=== PATIENT | male | born 1955 | race Caucasian/White ===

== ENCOUNTER 2019-02-04 10:38 | Inpatient (IN) | payer SELFPAY ==
[~2019-02-04] VITALS: Ht 167.6 cm; Wt 62.3 kg
[2019-02-04] MEDS ORDERED: SODIUM CHLORIDE 0.9% 1,000 ML IVB ONE (11:22)
[2019-02-04] MEDS ORDERED: ASPirin 81 mg TAB PO ONE (11:30)
[2019-02-04 11:38] LABS: Eosinophils # (auto) 0.4 uL; Mean Corpuscular Hemoglobin 25.1 pg (28.0-32.0); Nucleated Red Blood Cells % 0.1 %; White Blood Cell 8.2 10^3/uL (4.4-10.8)
[2019-02-04 11:41] LABS: Basophils # (auto) 0.1 uL; Basophils % (auto) 0.9 % (0.0-2.0); Eosinophils % (auto) 4.5 % (0.0-7.0); Hematocrit 44.1 % (41.0-53.0); Hemoglobin 14.3 g/dL (13.5-17.5); Lymphocytes # (auto) 1.8 uL; Lymphocytes % (auto) 21.7 % (10.0-50.0); Mean Corpuscular Hgb Conc. 32.4 g/dL (32.0-36.0); Mean Corpuscular Volume 77.5 fL (80.0-100.0); Monocytes # (auto) 0.4 uL; Neutrophils # (auto) 5.6 uL; Neutrophils % (auto) 67.9 % (37.0-80.0); Platelet Count (auto) 317 10^3/uL (140-450); Red Blood Cells 5.69 10^6/uL (4.5-5.90); Red Cell Distribution Width 16.1 % (11.8-14.3)
[2019-02-04 11:54] LABS: Albumin 3.4 g/dL (3.4-5.0); Anion Gap 8 (5-15); Blood Urea Nitrogen 17 mg/dL (7-18); Calcium 9.2 mg/dL (8.5-10.1); Carbon Dioxide 28 mmol/L (21-32); Chloride 101 mmol/L (98-107); Glucose 266 mg/dL (74-106); Potassium 3.5 mmol/L (3.5-5.1); Sodium 137 mmol/L (136-145)
[2019-02-04 11:59] LABS: Alanine Aminotransferase 26 U/L (16-61); Alkaline Phosphatase 141 U/L (45-117); Aspartate Aminotransferase 12 U/L (15-37); BUN/Creatinine Ratio 12.1; Bilirubin, Total 0.6 mg/dL (0.2-1.0); GFR African American 66 mL/min; GFR Non-African American 54 mL/min; Total Protein 7.9 g/dL (6.4-8.2)
[2019-02-04] MEDS ORDERED: AZITHROMYCIN 500MG/ 250ML 250 ML IV ONE (13:45)
[2019-02-04] MEDS ORDERED: cefTRIAXone 1GM/50ML D5W 50 ML IV ONE (13:45)
[2019-02-04] MEDS ORDERED: InsuLIN REG 1unit/0.01ml Soln (100units/ml) SC ONE (13:45)
[2019-02-04] MEDS ORDERED: traMADol HCL 50 MG TAB PO PRN (15:00)
[2019-02-04] MEDS ORDERED: MORPHINE SULF INJ 2 MG/ML SYRINGE 1ML IV PRN (15:00)
[2019-02-04] MEDS ORDERED: PROMETHAZINE HCL 25 MG/ML 1ML IV PRN (15:00)
[2019-02-04] MEDS ORDERED: NITROGLYCERIN 0.4 MG SL TAB SL PRN (15:00)
[2019-02-04] MEDS ORDERED: LACTULOSE 20Gm/30ML SOLN PO PRN (15:00)
[2019-02-04] MEDS ORDERED: ACETAMINOPHEN 500 MG TAB PO PRN (15:00)
[2019-02-04] MEDS ORDERED: ALBUTEROL SULF 2.5 MG/0.5ML(0.5%) NEB SOLN NEB PRN (15:00)
[2019-02-04] MEDS ORDERED: DEXTROSE (50%) 50ML SYRG IV PRN (15:00)
[2019-02-04 15:39] LABS: CRP High Sensitivity 1.96 mg/dL (< 0.3)
[2019-02-04] MEDS: InsuLIN REG 1unit/0.01ml Soln (100units/ml) SC SCH ×2 (15:54→20:54)
[2019-02-04] MEDS: ACCU-CHEK COMFORT CURVE STRIP VI SCH ×2 (15:54→20:53)
[2019-02-04] MEDS: SODIUM CHLORIDE 0.9% 1,000 ML IV SCH (15:56)
[2019-02-04 16:20] LABS: Alcohol, Urine < 3.0 mg/dL (0-5); Amphetamine Screen, Urine NEGATIVE (NEGATIVE); Barbiturate Scree,Urine NEGATIVE (NEGATIVE); Benzodiazephine Screen, Urine NEGATIVE (NEGATIVE); Cannabinoid Screen, Urine NEGATIVE (NEGATIVE); Cocaine Screen, Urine NEGATIVE (NEGATIVE); Opiate Scree,Urine NEGATIVE (NEGATIVE); Phencyclidine Screen, Urine NEGATIVE (NEGATIVE)
[2019-02-04] MEDS: ALBUTEROL SULF 2.5 MG/0.5ML(0.5%) NEB SOLN NEB SCH (18:40)
[2019-02-04] MEDS: IPRATROPIUM BROM 0.5 MG/2.5ML INH SOL NEB SCH (18:40)
--- NOTE | 2019-02-04 19:48 | NUR ---
OPENING NOTES RECEIVED PT FROM ED WITH NO SBAR HANDOFF REPORT. PT IS AWAKE AND ORIENTATED WITH NO S/S OF DISTRESS NOR PAIN. NO S/S OF SOB. FAMILY IS AT BEDSIDE. PT CLAIMS HASN'T HAD CHEST PAIN SINCE THE MORNING INCIDENT. BED BRAKES ARE LOCKED AND BED IS IN LOWEST POSITION. CALL LIGHT IS WITH IN REACH AND SIDE RAILS ARE UP X 2. HOB IS 30 DEGREES. DISCUSSED POC WITH PATIENT. PT VERBALIZED UNDERSTANDING. WILL MONITOR Q 1HR.
[2019-02-04 20:17] VITALS: BP 115/76
[2019-02-04] MEDS ORDERED: ENAL2.5T PO (20:29)
[2019-02-04] MEDS ORDERED: DIGO0.1262 PO (20:29)
[2019-02-04] MEDS ORDERED: APIX5TAB PO (20:29)
[2019-02-04] MEDS ORDERED: AMI200T PO (20:29)
[2019-02-04] MEDS ORDERED: ATOR40TA52 PO (20:31)
[2019-02-04] MEDS ORDERED: FURO40TA4 PO (20:31)
[2019-02-04] MEDS ORDERED: CARV25TA55 PO (20:31)
[2019-02-04 22:00] VITALS: BP 129/74
[2019-02-04] MEDS ORDERED: ATORVASTATIN 20 MG TAB PO SCH (22:00)
[2019-02-04] MEDS: SODIUM CHLOR 0.9% PF (SALINE LOCK) 10ML VIAL/SYR IV SCH (22:22)
--- NOTE | 2019-02-05 00:25 | NUR ---
Pt refused scheduled med neb tx. Pt denies sob or need for tx. No acute distress noted.
[2019-02-05] MEDS: InsuLIN REG 1unit/0.01ml Soln (100units/ml) SC SCH ×4 (04:00→12:08)
[2019-02-05] MEDS: ACCU-CHEK COMFORT CURVE STRIP VI SCH ×4 (04:22→12:08)
[2019-02-05] MEDS: SODIUM CHLORIDE 0.9% 1,000 ML IV SCH (04:22)
[2019-02-05 05:00] VITALS: BP 130/69
[2019-02-05] MEDS: SODIUM CHLOR 0.9% PF (SALINE LOCK) 10ML VIAL/SYR IV SCH ×2 (06:13→13:34)
[2019-02-05] MEDS: IPRATROPIUM BROM 0.5 MG/2.5ML INH SOL NEB SCH ×3 (06:36→11:55)
[2019-02-05] MEDS: ALBUTEROL SULF 2.5 MG/0.5ML(0.5%) NEB SOLN NEB SCH ×3 (06:36→11:55)
--- NOTE | 2019-02-05 07:15 | NUR ---
CLOSING NOTES ENDORSED CARE TO DAY SHIFT NURSEVJ.
--- NOTE | 2019-02-05 07:30 | NUR ---
OPENING NOTE ASSUMED CARE OF PATIENT. ALERT AND ORIENTED. NO SIGNS OF SOB/DISTRESS NOTED. DENIES ANY PAIN. BED SET TO LOWEST POSITION/LOCKED, BEDSIDE RAILS UP X2, CALL LIGHT WITHIN REACH. INSTRUCTED PATIENT TO CALL FOR ASSISTANCE, DISCUSSED POC. WILL CONTINUE TO MONITOR Q 1HR AND PRN.
[2019-02-05 09:00] VITALS: BP 125/80
[2019-02-05] MEDS ORDERED: cefTRIAXone 1GM/50ML D5W 50 ML IV SCH (09:00)
[2019-02-05] MEDS ORDERED: ASPirin 81 mg TAB PO SCH (10:00)
[2019-02-05] MEDS ORDERED: AZITHROMYCIN 500MG/ 250ML 250 ML IV SCH (10:00)
[2019-02-05] MEDS ORDERED: PANTOPRAZOLE 40 MG TAB PO SCH (10:00)
[2019-02-05] MEDS ORDERED: NITROGLYCERIN 0.2MG/HR TOPICAL PATCH TD SCH (10:00)
[2019-02-05] MEDS ORDERED: ENOXAPARIN SOD 40 MG/0.4 ML SYRINGE SC SCH (10:00)
[2019-02-05 13:00] VITALS: BP 139/78
--- NOTE | 2019-02-05 15:53 | NUR ---
AMA Note CHANNING MARQUEZ states they want to leave the hospital Against Medical Advice (AMA). Patient encouraged to stay for further treatment/stabilization. Dr. Huggins notified of patient's wishes. Patient advised of the risks and benefits of leaving AMA. Patient verbalized understanding. Patient encouraged to return to the ER if symptoms do not improve or worsen.
== END 2019-02-05 13:53 | disposition left against medical advice (07) | DRG 197 ==
LOC: EDSEX 10:44 → ER 10:44 → TELE 10:45 → TELE-WESTW 19:52
PROVIDERS: ADMIT Internal Medicine; ATTEND Family Medicine
DX: J84.9 Interstitial pulmonary disease, unspecified (principal); I13.0 Hypertensive heart and chronic kidney disease with heart failure and stage 1 through stage 4 chronic kidney disease, or unspecified chronic kidney disease; I50.22 Chronic systolic (congestive) heart failure; R07.89 Other chest pain; E11.22 Type 2 diabetes mellitus with diabetic chronic kidney disease; E11.21 Type 2 diabetes mellitus with diabetic nephropathy; E11.65 Type 2 diabetes mellitus with hyperglycemia; I08.1 Rheumatic disorders of both mitral and tricuspid valves; I48.91 Unspecified atrial fibrillation; I25.10 Atherosclerotic heart disease of native coronary artery without angina pectoris; Z53.21 Procedure and treatment not carried out due to patient leaving prior to being seen by health care provider; N18.3 Chronic kidney disease, stage 3 (moderate); I25.2 Old myocardial infarction; Z95.810 Presence of automatic (implantable) cardiac defibrillator; Z95.5 Presence of coronary angioplasty implant and graft; Z83.3 Family history of diabetes mellitus; Z82.49 Family history of ischemic heart disease and other diseases of the circulatory system
CPT/HCPCS: 36415; 71046; 80053; 80307; 82550; 82962; 83036; 83735; 83880; 84484; 85025; 85379; 85652; 86141; 87040; 93005; 93306; 94640; 94761; 96372; 96374; 96375; G0378; J0696; J1815

== ENCOUNTER → 2020-05-12 | Outpatient (CLI) | payer OTHER ==
[~2020-05-12] MED LIST: AMIO200T4 PO; APIX5TAB PO; APRE1TAB2 PO; ATOR40TA52 PO; ATOR80TA PO; CALC0.0013 EX; CARV25TA55 PO; DIGO0.12 PO; ENAL2.5T7 PO; ENAL5TAB10 PO; FURO40TA4 PO; INSLANTI SC; INSLISPI SC
[2020-05-12 09:15] VITALS: BP 132/72
[2020-05-12 09:45] VITALS: BP 125/73
[2020-05-12 12:39] LABS: Basophils # (auto) 0.1 10 ^3/uL (0-0.2); Eosinophils # (auto) 0.2 10 ^3/uL (0-0.8); Lymphocytes # (auto) 1.6 10 ^3/uL (0.4-5.4)
[2020-05-12 12:41] LABS: Basophils % (auto) 0.9 % (0.0-2.0); Eosinophils % (auto) 2.2 % (0.0-7.0); Hematocrit 36.5 % (41.0-53.0); Hemoglobin 12.1 g/dL (13.5-17.5); Lymphocytes % (auto) 17.7 % (10.0-50.0); Mean Corpuscular Hemoglobin 25.8 pg (28.0-32.0); Mean Corpuscular Hgb Conc. 33.2 g/dL (32.0-36.0); Mean Corpuscular Volume 77.9 fL (80.0-100.0); Monocytes # (auto) 0.5 10 ^3/uL (0-1.3); Monocytes % (auto) 6.2 % (0.0-12.0); Neutrophils # (auto) 6.4 10 ^3/uL (1.6-8.6); Nucleated Red Blood Cells % 0.1 %; Platelet Count (auto) 320 10^3/uL (140-450); Potassium 3.8 mmol/L (3.5-5.1); Red Blood Cells 4.69 10^6/uL (4.5-5.90); White Blood Cell 8.8 10^3/uL (4.4-10.8)
[2020-05-12 12:54] LABS: BUN/Creatinine Ratio 13.1; Calcium 8.7 mg/dL (8.5-10.1)
[2020-05-12 12:57] LABS: INR 1.08 (0.9-1.15); Partial Thromboplastin Time 28.8 sec (23.0-31.2)
== END | disposition home or self-care (01) ==
LOC: Rad HDHVI 09:08
PROVIDERS: ATTEND Internal Medicine Cardiovascular Disease
DX: Z01.812 Encounter for preprocedural laboratory examination (principal); I70.0 Atherosclerosis of aorta; M25.78 Osteophyte, vertebrae; M47.814 Spondylosis without myelopathy or radiculopathy, thoracic region; Z45.02 Encounter for adjustment and management of automatic implantable cardiac defibrillator; Z95.810 Presence of automatic (implantable) cardiac defibrillator; I50.22 Chronic systolic (congestive) heart failure
CPT/HCPCS: 36415; 71046; 80048; 85025; 85610; 85730; 93005; G0463

== ENCOUNTER 2020-05-18 07:01 | Inpatient (IN) | payer OTHER ==
[~2020-05-18] VITALS: Ht 167.6 cm; Wt 69.5 kg
[~2020-05-18 07:01] MED LIST changes: -ATOR80TA PO; -CALC0.0013 EX; -DIGO0.12 PO; -ENAL2.5T7 PO
[2020-05-18] MEDS ORDERED: LIDOCAINE 2%HCL (LOCAL ANESTH.) INJ 20ML MDV ONE (08:42)
[2020-05-18] MEDS ORDERED: IOHEXOL 350 MG/ML 100ML IJ ONE ×3 (08:42→10:12)
[2020-05-18] MEDS ORDERED: VANCOMYCIN 1GM/250ML 250 ML IV ONE ×2 (08:45→09:19)
[2020-05-18] MEDS ORDERED: ANGIOMAX 250 MG VIAL IV ONE (08:51)
[2020-05-18] MEDS ORDERED: diphenhdrAMINE HCL 50 MG/1 ML VL ONE (08:51)
[2020-05-18] MEDS ORDERED: fentaNYL CITRATE 100 MCG/2 ML VL ONE (08:51)
[2020-05-18] MEDS ORDERED: VANCOMYCIN HCL 1000 MG VL ONE (08:51)
[2020-05-18] MEDS ORDERED: MIDAZOLAM HCL 1MG/1ML-2 ML VIAL ONE (08:52)
[2020-05-18] MEDS ORDERED: SODIUM CHL 0.9% 50 ML ONE (08:52)
[2020-05-18] MEDS ORDERED: TICAGRELOR 90 MG TAB ONE (10:19)
[2020-05-18] MEDS ORDERED: ASPirin 325 MG TAB ONE (10:19)
[2020-05-18] MEDS ORDERED: ACETAMINOPHEN 500 MG TAB PO PRN (10:45)
[2020-05-18] MEDS ORDERED: SODIUM CHL 0.9% 500 ML IV ONE (10:45)
[2020-05-18] MEDS ORDERED: ONDANSETRON HCL 4 MG/2 ML VIAL IV PRN (10:45)
[2020-05-18] MEDS ORDERED: MORPHINE SULF INJ 2 MG/ML SYRINGE 1ML IV PRN (10:45)
[2020-05-18] MEDS ORDERED: HYDROcodone-ACET 5/325MG TAB PO PRN (10:45)
[2020-05-18] MEDS ORDERED: NITROGLYCERIN 0.4 MG SL TAB SL PRN (10:45)
[2020-05-18] MEDS ORDERED: DEXTROSE (50%) 50ML SYRG IV PRN (10:45)
[2020-05-18] MEDS ORDERED: FUROSEMIDE 20 MG/2 ML VIAL IV ONE (10:45)
[2020-05-18] MEDS: InsuLIN REG 1unit/0.01ml Soln (100units/ml) SC SCH ×2 (11:30→17:57)
[2020-05-18] MEDS: ACCU-CHEK COMFORT CURVE STRIP VI SCH ×3 (11:36→22:08)
[2020-05-18 15:00] VITALS: BP 145/86
[2020-05-18 16:31] VITALS: BP 117/66
[2020-05-18] MEDS ORDERED: ATOR80TA PO (17:06)
[2020-05-18] MEDS ORDERED: CALC0.0013 EX (17:06)
[2020-05-18] MEDS ORDERED: ATORVASTATIN 20 MG TAB PO SCH (18:00)
[2020-05-18] MEDS ORDERED: APREMILAST BASE 30 MG PO SCH (18:00)
[2020-05-18] MEDS: APIXABAN 5 MG TAB PO SCH (21:53)
[2020-05-18] MEDS: CARVEDILOL 12.5 MG TAB PO SCH (21:54)
[2020-05-18 22:00] VITALS: BP 124/78
[2020-05-18] MEDS ORDERED: InsuLIN REG 1unit/0.01ml Soln (100units/ml) SC SCH (22:00)
[2020-05-18] MEDS ORDERED: INSULIN LANTUS (GLARGINE) 1 /0.01ml (100units/ml) SC SCH (22:00)
[2020-05-19 05:00] VITALS: BP 120/74
[2020-05-19] MEDS: ACCU-CHEK COMFORT CURVE STRIP VI SCH ×2 (06:15→11:54)
[2020-05-19] MEDS: InsuLIN REG 1unit/0.01ml Soln (100units/ml) SC SCH ×2 (06:16→11:54)
[2020-05-19] MEDS ORDERED: AMIODARONE HCL 200 MG TAB PO SCH (07:00)
[2020-05-19] MEDS ORDERED: FUROSEMIDE 40 MG TAB PO SCH (07:00)
[2020-05-19 08:00] VITALS: BP 127/75
--- NOTE | 2020-05-19 08:00 | NUR ---
Opening Shift Note Assumed care of patient, awake and alert, A/O X 4, sitting in a high-fowlers position upon entering the room. No S/S of distress/SOB or pain. Current IV was displaced and removed at this time. A 20g IV was placed in the right forearm using sterile technique after 2 attempts. No signs of trauma upon placement and the patient tolerated the procedure well. Instructed on POC and to call for assist PRN. Patient verbalized understanding. Bed is in lowest position and the call light is within reach. Will continue to monitor for changes Q1hr and PRN. Addendum: 05/19/20 at 1029 by Tequila Salcido RN RN Charted opening shift note on wrong Patient Assumed care of patient, awake and alert, A/O X 4, lying in supine position upon entering the room. No s/s of respiratory distress or pain. Instructed on plan of care and to call for assist PRN. All questions were addressed at this time. Patient verbalized understanding. Bed is in lowest position and the call light is within reach. Will continue to monitor for changes Q1hr and PRN.
[2020-05-19 09:00] VITALS: BP 127/75
[2020-05-19] MEDS: APIXABAN 5 MG TAB PO SCH (09:49)
[2020-05-19] MEDS: CARVEDILOL 12.5 MG TAB PO SCH (09:50)
[2020-05-19] MEDS ORDERED: ENALAPRIL MALEATE 2.5 MG TAB PO SCH (10:00)
[2020-05-19] MEDS ORDERED: TICAGRELOR 90 MG TAB PO SCH (10:00)
[2020-05-19 12:49] VITALS: BP 120/75
--- NOTE | 2020-05-19 13:09 | NUR ---
D/C Planning Spoke with Dr Epstein regarding POC of pt. Plans to d/c pt home today with new prescription, Brilinta 90 mg PO BID. Order read back and verified. Further verified with MD continuation of all home medications including Eliquis. MD requested no change in home medications. Will implement and continue to monitor. Will call in new RX to pt's pharmacy.
--- NOTE | 2020-05-19 14:00 | NUR ---
Prescriptions called in to patient's pharmacy New prescription Brilinta was called into the patient's pharmacy at [facility] on [address] in [place] [address]
[2020-05-19 14:14] VITALS: BP 127/75
--- NOTE | 2020-05-19 15:05 | NUR ---
Pt D/C'ed off Unit PT d/c'ed off unit. Pt is a/ox4 with no s/s of distress or SOB. Pt provided all education material, prescription information, follow up appointment information, and all belongings. All questions were answered. IV and tele box was d/c'ed prior to d/c.
== END 2020-05-19 15:06 | disposition home or self-care (01) | DRG 246 ==
LOC: CATH 07:01 → TELE-WESTW 14:09
PROVIDERS: ADMIT Internal Medicine Cardiovascular Disease; ATTEND Internal Medicine Cardiovascular Disease
PROC: 027035Z Dilation of Coronary Artery, One Artery with Two Drug-eluting Intraluminal Devices, Percutaneous Approach (ICD-10-PCS; principal; 2020-05-18)
PROC: B2111ZZ Fluoroscopy of Multiple Coronary Arteries using Low Osmolar Contrast (ICD-10-PCS; 2020-05-18)
PROC: B2151ZZ Fluoroscopy of Left Heart using Low Osmolar Contrast (ICD-10-PCS; 2020-05-18)
PROC: B240ZZ3 Ultrasonography of Single Coronary Artery, Intravascular (ICD-10-PCS; 2020-05-18)
DX: T82.855A Stenosis of coronary artery stent, initial encounter (principal); I50.23 Acute on chronic systolic (congestive) heart failure; I25.5 Ischemic cardiomyopathy; I11.0 Hypertensive heart disease with heart failure; I25.10 Atherosclerotic heart disease of native coronary artery without angina pectoris; E78.5 Hyperlipidemia, unspecified; Z20.828 Contact with and (suspected) exposure to other viral communicable diseases; Y84.0 Cardiac catheterization as the cause of abnormal reaction of the patient, or of later complication, without mention of misadventure at the time of the procedure; Y92.89 Other specified places as the place of occurrence of the external cause
CPT/HCPCS: 36415; 82565; 82962; 92928; 92978; 93454; 99152; 99153; C1874; G0378; J1815; J2250

== ENCOUNTER → 2020-06-14 | Outpatient (CLI) | payer OTHER ==
[~2020-06-14] VITALS: Ht 167.6 cm; Wt 70.3 kg
[~2020-06-14] MED LIST changes: +ADENOSINE 59 MG in GIVE UN-DILUTED 0 ML IV ONE; +ADENOSINE 90 MG/30 ML INJ IV ONE; -ATOR40TA52 PO; +ATOR80TA PO; +CALC0.0013 EX
== END | disposition home or self-care (01) ==
LOC: Rad HDHVI 08:53
PROVIDERS: ATTEND Internal Medicine Cardiovascular Disease
DX: I11.0 Hypertensive heart disease with heart failure (principal); I50.23 Acute on chronic systolic (congestive) heart failure; I25.10 Atherosclerotic heart disease of native coronary artery without angina pectoris; I25.2 Old myocardial infarction; E78.00 Pure hypercholesterolemia, unspecified; E11.9 Type 2 diabetes mellitus without complications; Z95.0 Presence of cardiac pacemaker; Z82.49 Family history of ischemic heart disease and other diseases of the circulatory system
CPT/HCPCS: 78452; 93005; 96374; 96375; A9500; J0153

== ENCOUNTER → 2020-07-03 | Outpatient (CLI) | payer OTHER ==
[~2020-07-03] MED LIST changes: -ADENOSINE 59 MG in GIVE UN-DILUTED 0 ML IV ONE; -ADENOSINE 90 MG/30 ML INJ IV ONE; +TICA90TA PO
[2020-07-03 10:00] VITALS: BP 134/72
--- NOTE | 2020-07-03 10:00 | NUR ---
PT. TO CLINIC AFTER PRE OP LABS AND CXR FOR EKG AND EDUCATION. PT. SCHEDULED FOR GEN CHANGE AT [facility] THIS WEEK.ORDERS RECEIVED AND CARRIED OUT.
--- NOTE | 2020-07-03 10:13 | NUR ---
EKG SHOWS SR WITH NO ECTOPY. HEMODYNAMICALLY STABLE.
[2020-07-03 10:25] VITALS: BP 132/75
--- NOTE | 2020-07-03 10:25 | NUR ---
Pre-Op Discharge Summary: See e-MAR for any medications given for this visit. Pre-op orders received and carried out per MD of EKG, LABS and chest xrays. Patient given a copy of EKG with instructions to go to [facility] out patient for further follow up care.
[2020-07-03 12:35] LABS: BUN/Creatinine Ratio 11.2; Potassium 4.1 mmol/L (3.5-5.1)
[2020-07-03 12:37] LABS: Basophils # (auto) 0.1 10 ^3/uL (0-0.2); Eosinophils # (auto) 0.2 10 ^3/uL (0-0.8); Hemoglobin 12.1 g/dL (13.5-17.5); Monocytes # (auto) 0.6 10 ^3/uL (0-1.3); Neutrophils % (auto) 67.8 % (37.0-80.0); White Blood Cell 8.9 10^3/uL (4.4-10.8)
[2020-07-03 12:42] LABS: Basophils % (auto) 0.9 % (0.0-2.0); Hematocrit 37.1 % (41.0-53.0); Lymphocytes % (auto) 22.5 % (10.0-50.0); Mean Corpuscular Hemoglobin 25.6 pg (28.0-32.0); Mean Corpuscular Hgb Conc. 32.6 g/dL (32.0-36.0); Mean Corpuscular Volume 78.3 fL (80.0-100.0); Monocytes % (auto) 6.8 % (0.0-12.0); Nucleated Red Blood Cells % 0.1 %; Platelet Count (auto) 309 10^3/uL (140-450); Red Blood Cells 4.73 10^6/uL (4.5-5.90); Red Cell Distribution Width 16.4 % (11.8-14.3)
[2020-07-03 12:50] LABS: Partial Thromboplastin Time 27.1 sec (23.0-31.2)
== END | disposition home or self-care (01) ==
LOC: Rad HDHVI 09:38
PROVIDERS: ATTEND Internal Medicine Cardiovascular Disease
DX: Z01.812 Encounter for preprocedural laboratory examination (principal); I51.7 Cardiomegaly; Z95.810 Presence of automatic (implantable) cardiac defibrillator
CPT/HCPCS: 36415; 71046; 80048; 85025; 85610; 85730; 93005; G0463

== ENCOUNTER 2020-07-06 09:44 | Day surgery (SDC) | payer OTHER ==
[~2020-07-06] VITALS: Ht 167.6 cm; Wt 70.3 kg
[~2020-07-06 09:44] MED LIST changes: -APIX5TAB PO; -CALC0.0013 EX
[2020-07-06] MEDS ORDERED: VANCOMYCIN 1GM/250ML 250 ML IV ONE ×2 (10:58→11:00)
[2020-07-06] MEDS ORDERED: LIDOCAINE 2%HCL (LOCAL ANESTH.) INJ 20ML MDV ONE (12:10)
[2020-07-06] MEDS ORDERED: fentaNYL CITRATE 100 MCG/2 ML VL ONE (12:10)
[2020-07-06] MEDS ORDERED: MIDAZOLAM HCL 1MG/1ML-2 ML VIAL ONE (12:11)
[2020-07-06] MEDS ORDERED: VANCOMYCIN HCL 1000 MG VL ONE (12:18)
--- NOTE | 2020-07-06 13:14 | NUR ---
Patient brought to recovery via [facility], report received from Seymour RN and Helio RN. Patient is AO x 4, NAD noted. Left upper chest site scant blood noted to dressing. Patient denies pain/discomfort at this time. Educated pt on post-procedure care instructions, verbalized understanding.
--- NOTE | 2020-07-06 13:29 | NUR ---
Patient awake in bed, resting comfortably. Left upper chest site remains unchanged. Ice pack in place.
--- NOTE | 2020-07-06 13:30 | NUR ---
Patient awake in bed eating lunch, tolerating diet well. NAD noted.
--- NOTE | 2020-07-06 13:39 | NUR ---
Spoke to patient's step-son Viola via telephone, updated him on patient status. All questions answered at this time.
--- NOTE | 2020-07-06 13:41 | NUR ---
Spoke to [facility] pharmacist, Marianela and placed prescription order per MD Epstein for Keflex 500 mg PO QID x 5 days. 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
--- NOTE | 2020-07-06 14:30 | NUR ---
Patient resting in bed with eyes closed. Breaths even and unlabored. NAD noted.
--- NOTE | 2020-07-06 14:48 | NUR ---
Discharge instructions and education on post-procedure care given to patient verbally and via handouts. Patient verbalized understanding. All questions addressed at this time.
--- NOTE | 2020-07-06 15:25 | NUR ---
IV removal IV DC'd with clean sterile technique, catheter fully intact. Pressure dressing applied to site. Patient tolerated well.
--- NOTE | 2020-07-06 15:48 | NUR ---
Patient taken out to main lobby via wheelchair by [employer] [place]. All personal belongings in possession. NAD noted upon departure. Patient stable. Left upper chest site remains unchanged from previous notation.
== END 2020-07-06 15:48 | disposition home or self-care (01) ==
LOC: CATH 09:44
PROVIDERS: ATTEND Internal Medicine Cardiovascular Disease
DX: Z45.02 Encounter for adjustment and management of automatic implantable cardiac defibrillator (principal); I10 Essential (primary) hypertension; E78.5 Hyperlipidemia, unspecified; I25.2 Old myocardial infarction; I25.10 Atherosclerotic heart disease of native coronary artery without angina pectoris; Z20.828 Contact with and (suspected) exposure to other viral communicable diseases; Z98.890 Other specified postprocedural states; Z79.899 Other long term (current) drug therapy; Z95.5 Presence of coronary angioplasty implant and graft
CPT/HCPCS: 33262; C1882; J2250; J3010; J3370; U0003; 99152; 99153

== ENCOUNTER → 2020-08-10 | Outpatient (CLI) | payer OTHER | END | disposition home or self-care (01) | LOC: LAB 13:55 | PROVIDERS: ATTEND Nurse Practitioner Family | DX: N39.0 Urinary tract infection, site not specified (principal) | CPT/HCPCS: 87086 ==

== ENCOUNTER → 2020-08-17 | Outpatient (CLI) | payer OTHER | END | disposition home or self-care (01) | LOC: LAB 14:09 | PROVIDERS: ATTEND Nurse Practitioner Family | DX: U07.1 COVID-19 (principal); R19.7 Diarrhea, unspecified | CPT/HCPCS: 82270; 87045; 87177; 87427; 87493; C9803; U0003 ==

== ENCOUNTER 2020-12-26 11:46 | Inpatient (IN) | payer OTHER ==
[~2020-12-26] VITALS: Ht 167.6 cm; Wt 71.7 kg
[~2020-12-26 11:46] MED LIST changes: -APRE1TAB2 PO; +APRE30TA PO
[2020-12-26 12:26] LABS: Basophils # (auto) 0.1 10 ^3/uL (0-0.2); Basophils % (auto) 0.8 % (0.0-2.0); Eosinophils # (auto) 0.4 10 ^3/uL (0-0.8); Lymphocytes # (auto) 2.7 10 ^3/uL (0.4-5.4); Mean Corpuscular Hgb Conc. 32.9 g/dL (32.0-36.0); Monocytes # (auto) 0.6 10 ^3/uL (0-1.3)
[2020-12-26 12:28] LABS: Eosinophils % (auto) 4.4 % (0.0-7.0); Hematocrit 36.2 % (41.0-53.0); Hemoglobin 11.9 g/dL (13.5-17.5); Lymphocytes % (auto) 30.2 % (10.0-50.0); Mean Corpuscular Hemoglobin 26.1 pg (28.0-32.0); Mean Corpuscular Volume 79.5 fL (80.0-100.0); Monocytes % (auto) 6.3 % (0.0-12.0); Neutrophils # (auto) 5.2 10 ^3/uL (1.6-8.6); Neutrophils % (auto) 58.3 % (37.0-80.0); Red Blood Cells 4.56 10^6/uL (4.5-5.90); Red Cell Distribution Width 14.2 % (11.8-14.3); White Blood Cell 8.9 10^3/uL (4.4-10.8)
[2020-12-26 12:43] LABS: Chloride 99 mmol/L (98-107); Sodium 135 mmol/L (136-145)
[2020-12-26 12:55] LABS: Alanine Aminotransferase 28 U/L (16-61); Albumin 3.6 g/dL (3.4-5.0); Alkaline Phosphatase 117 U/L (45-117); Anion Gap 12 (5-15); Aspartate Aminotransferase 18 U/L (15-37); Bilirubin, Total 0.4 mg/dL (0.2-1.0); Blood Urea Nitrogen 31 mg/dL (7-18); Calcium 9.5 mg/dL (8.5-10.1); Carbon Dioxide 24 mmol/L (21-32); GFR African American 52 mL/min; GFR Non-African American 43 mL/min; Glucose 160 mg/dL (74-106); Total Protein 9.1 g/dL (6.4-8.2)
[2020-12-26] MEDS ORDERED: ASPirin 81 mg TAB PO ONE (13:45)
[2020-12-26] MEDS ORDERED: SODIUM CHLORIDE 0.9% 1,000 ML IVB ONE (13:45)
[2020-12-26 14:19] LABS: INR 1.03 (0.9-1.15); Partial Thromboplastin Time 27.4 sec (23.0-31.2)
[2020-12-26 16:00] VITALS: BP 104/56
[2020-12-26] MEDS ORDERED: CLOPIDOGREL 300 MG TAB PO ONE (16:45)
[2020-12-26] MEDS ORDERED: DEXTROSE (50%) 50ML SYRG IV PRN ×2 (16:45)
[2020-12-26] MEDS ORDERED: NITROGLYCERIN 0.4 MG SL TAB SL PRN (16:45)
[2020-12-26] MEDS ORDERED: MORPHINE SULFATE INJECTION 2 MG/ML SYRG IV PRN (16:45)
[2020-12-26] MEDS ORDERED: ACCU-CHEK COMFORT CURVE STRIP VI SCH ×2 (17:00→20:00)
[2020-12-26] MEDS ORDERED: InsuLIN REG 1unit/0.01ml Soln (100units/ml) SC SCH ×2 (17:00→20:00)
[2020-12-26] MEDS ORDERED: APREMILAST BASE 30 MG PO SCH (18:00)
[2020-12-26] MEDS ORDERED: APREMILAST 30 MG PO SCH (18:00)
[2020-12-26] MEDS ORDERED: PATIENTS OWN MEDICATION (Carvedilol 25 MG) PO SCH (22:00)
[2020-12-26] MEDS ORDERED: CARVEDILOL 12.5 MG TAB PO SCH (22:00)
[2020-12-26] MEDS ORDERED: INSULIN LANTUS (GLARGINE) 1 /0.01ml (100units/ml) SC SCH (22:00)
[2020-12-27] MEDS ORDERED: AMIODARONE HCL 200 MG TAB PO SCH (07:00)
[2020-12-27] MEDS ORDERED: PATIENTS OWN MEDICATION (Enalapril Maleate 1 TAB) PO SCH (07:00)
[2020-12-27] MEDS ORDERED: ATORVASTATIN 20 MG TAB PO SCH (10:00)
[2020-12-27] MEDS ORDERED: ENALAPRIL MALEATE 2.5 MG TAB PO SCH (10:00)
[2020-12-27] MEDS ORDERED: PATIENTS OWN MEDICATION (Atorvastatin Calcium (Lipitor) 1 TAB) PO SCH (10:00)
[2020-12-27] MEDS ORDERED: CLOPIDOGREL BISULFATE 75 MG TAB PO SCH (10:00)
== END 2020-12-26 17:06 | disposition left against medical advice (07) | DRG 311 ==
LOC: ER 11:46 → TELE 16:35 → ER 17:06
PROVIDERS: ADMIT Nurse Practitioner Acute Care; ATTEND Nurse Practitioner Acute Care
DX: I24.9 Acute ischemic heart disease, unspecified (principal); I50.22 Chronic systolic (congestive) heart failure; E78.5 Hyperlipidemia, unspecified; I25.10 Atherosclerotic heart disease of native coronary artery without angina pectoris; I25.5 Ischemic cardiomyopathy; E11.22 Type 2 diabetes mellitus with diabetic chronic kidney disease; Z20.822 Contact with and (suspected) exposure to COVID-19; M19.90 Unspecified osteoarthritis, unspecified site; Z53.29 Procedure and treatment not carried out because of patient's decision for other reasons; Z79.02 Long term (current) use of antithrombotics/antiplatelets; Z79.4 Long term (current) use of insulin; Z79.899 Other long term (current) drug therapy; Z82.49 Family history of ischemic heart disease and other diseases of the circulatory system; Z95.5 Presence of coronary angioplasty implant and graft; Z95.810 Presence of automatic (implantable) cardiac defibrillator; I11.0 Hypertensive heart disease with heart failure; N18.31 Chronic kidney disease, stage 3a
CPT/HCPCS: 36415; 71045; 80053; 83036; 83735; 83880; 84484; 85025; 85610; 85730; 87426; 93005; 96360; G0378